=== PATIENT | male | born 1950 | race Caucasian/White ===

== ENCOUNTER → 2016-04-06 | Outpatient (CLI) | payer OTHER ==
--- NOTE | 2016-04-06 10:40 | DX ---
Lumbar Spine, 2 views History: Postoperative follow-up; comparison January 08, 2016. Findings: Postoperative changes of lumbar fusion are noted with pedicle screws and a mary on the right side at the previously noted L4-L5 level. Additionally, there is a disk space prosthesis as well as spinous process clamp posteriorly. The hardware is intact and unchanged. The bone alignment is normal . Impression: Stable findings of lumbar fusion with intact hardware.
== END ==
LOC: FIMAGING 08:09
PROVIDERS: ATTEND Physician Assistant Surgical
DX: Z09 Encounter for follow-up examination after completed treatment for conditions other than malignant neoplasm (principal); Z98.1 Arthrodesis status